=== PATIENT | female | born 1965 | race Caucasian/White ===

== ENCOUNTER 2024-08-03 12:06 | Emergency (ER) | payer OTHER, SELFPAY ==
[2024-08-03 12:11] VITALS: BP 118/76
--- NOTE | 2024-08-03 12:41 | ED.GENMED ---
History of Present Illness
General
Chief Complaint: Chest Pain
Source: patient
Exam Limitations: none
Time Seen by Provider: 08/03/24 12:40
Nursing documentation reviewed up to this point in time: agreed with
History of Present Illness
History of Present Illness:
59-year-old female with past medical history of breast cancer in remission as of 5 years, eczema presenting emergency department today with concerns of pleuritic chest pain and left upper back pain that started yesterday. She first noticed her
symptoms yesterday upon wakening. Patient reports that at first she thought it could be related to COVID as her daughter recently had it however she took at home test which were negative. Patient has no associated upper respiratory symptoms such as
coughing cold-like symptoms. Patient denies sore throat runny nose. Patient denies any redness or swelling in her legs. Patient does take tamoxifen but no exogenous estrogen. Patient denies any paresthesias or abdominal pain. Patient denies any
nausea or vomiting. Patient denies any personal history of cardiac disease, patient is no family history of cardiac disease. Patient does have a distant history of alcohol abuse.
Past History
Past History
ED Past Medical History: None
ED Past Surgical History: None
Social History
Tobacco: Non-smoker
Review of Systems
Review of Systems
All Other Systems: ROS reviewed and negative except as documented in HPI and ROS
Phy Exam
Physical Exam
Physical Exam:
General: Patient is well appearing and in no acute distress; non-toxic
Skin: Warm and dry, no rashes or lesions
Head: Normocephalic, atraumatic
Eyes: Sclera non-icteric. EOMs intact. PERRLA.
Cardiac: Regular rate and rhythm, no tenderness palpation external chest wall
Peripheral Vascular: No lower extremity swelling or edema
Pulm: Normal respiratory effort, no wheezes, rales, rhonchi bilaterally
Musculoskeletal: No tenderness to palpation of the left shoulder or the thoracic spine.
Neuro: CN II-XII intact, no focal neurologic deficits.
Psychiatric: Appropriate mood and affect.
Scores
Heart Score for Chest Pain Patients
STEMI patient?: No
History: Slightly or Non-Suspicious
ECG: Normal
Age: >45 - <65 years
Risk Factors: No Risk Factors
Troponin: </= Normal Limit
Heart Score for Chest Pain Patients: 1
Heart Score Risk: 2.5% MACE over next 6 weeks
Course
Orders/Labs/Results
Orders:
Orders
08/03/24 12:08
Electrocardiogram (*1) Urgent
Reason for Study: Chest Pain
EKG- Treatment ONCE
08/03/24 13:09
Complete Blood Count/With Diff Urgent
Comprehensive Metabolic Panel Urgent
Troponin I Urgent
08/03/24 13:35
CR Chest - 2 Views Urgent
Comment:
Reason For Exam: left sided chest pain, upper back pain
08/03/24 13:39
D-Dimer Urgent
08/03/24 13:43
Ketorolac [Toradol] 15 mg IV NOW STA
Abnormal Lab Results
08/03/24
13:09
RBC 3.71 L 10^6/uL
(4.20-5.40)
Hct 35.6 L %
(37.0-47.0)
MCH 33.2 H pg
(27.0-31.0)
Absolute Monos (auto) 0.7 H 10^3/uL
(0.1-0.6)
Lymphocytes % 18.7 L %
(20.5-51.1)
Monocytes % 11.0 H %
(1.7-9.3)
Glucose 119 H mg/dl
(70-99)
08/03/24 13:09
08/03/24 13:09
Vital Signs
Initial and Last Documented VS:
Initial Vital Signs
Temp Pulse Resp BP Pulse Ox
98.5 F 89 16 118/76 100
08/03/24 12:11 08/03/24 12:11 08/03/24 12:11 08/03/24 12:11 08/03/24 12:11
Last Documented Vital Signs
Temp Pulse Resp BP Pulse Ox
98.5 F 83 18 100/67 96
08/03/24 12:11 08/03/24 14:00 08/03/24 14:00 08/03/24 14:00 08/03/24 14:00
MDM/Problems Addressed
Differential Diagnosis Includes:
ddx include costochondritis, PE, ACS, musculoskeletal sprain strain, GERD, anxiety
MDM/Problems Addressed:
59-year-old female with past medical history of breast cancer in remission as of 5 years, eczema presenting emergency department today with concerns of pleuritic chest pain and left upper back pain that started yesterday. She first noticed her
symptoms yesterday upon wakening. Had similar pain in the past during which time she is undergoing radiation therapy however she had a workup at that time which was unremarkable. She called her primary care doctor to schedule appointment who
recommended emergency evaluation. Patient has no personal or family history of cardiac disease. On exam, she is well-appearing no acute distress with no tenderness palpation of the external chest wall and has no tenderness palpation of thoracic
spine or left shoulder. Her lung sounds are clear. Vitals are stable. Her EKG shows normal sinus rhythm with no skin changes. Her D-dimer is within normal limits her CBC and CMP are unremarkable. Initial troponin undetectable we will.
Considering patient symptoms started upon waking yesterday and did mildly improve with, patient is stable for outpatient follow-up.
Chronic conditions affecting care:
distant hx of breast cancer
Acute Exacerbation and/or Progression of Chronic Illness:
n/a
*Pulse Oximetry
Patient hypoxic: no
*EKG
Interpreted by ED Provider?: Yes
EKG Intrepretation Date: 08/03/24
Interpretation: normal
Comparison EKG: changes noted (non-specific T wave abnormality)
Heart Rate: 92
Rate: normal
Rhythm: sinus
[place]ass[place]: normal axis
Interval: normal interval, normal QT interval and normal IL interval
QRS Pattern: normal QRS
Ischemia: no ischemia
*Critical Care Note
Total Time (30-74mins, 75-104mins- exclusive of procedures): Not Applicable
ED Attending Note
-
Portions of this chart may have been created with voice recognition software.� Occasional wrong word or��sound alike� substitutions may have occurred due to the inherent limitations of voice recognition software.
Discharge Plan
Departure
Patient Disposition: Home (Routine Discharge)
Date of Disposition: 08/03/24
Time of Disposition: 15:05
Patient with high blood pressure during this ER visit?: Yes
Condition: Good
Discharge Problem:
Chest pain
Instructions: Chest pain, BLOOD PRESSURE
Prescriptions:
No Action
anastrozole 1 MG tablet
1 mg PO DAILY
oxcarbazepine 300 MG tablet
300 mg PO DAILY
Aspirin
81 mg PO DAILY
trazodone 50 MG tablet
50 mg PO HS PRN (Reason: insomnia)
oxcarbazepine 300 MG tablet
600 mg PO QPM
levothyroxine 88 MCG tablet
88 mcg PO DAILY
hydroxyzine HCl 25 MG tablet
25 mg PO PRN PRN (Reason: anxiety)
Fish Oil
1 - 2 cap PO DAILY
Multivitamin
1 tab PO DAILY
Naproxen
500 mg PO PRN PRN (Reason: pain)
Referrals:
Adria Ruano PA [Family Provider] -
Activity Restrictions/Additional Instructions:
Your d-dimer test was within normal limits. Your chest x-ray was normal.
Please follow up with your primary care provider in one week.
PLEASE RETURN TO THE ER SHOULD YOU EXPERIENCE AN ACUTE WORSENING OF YOUR SYMPTOMS, SHORTNESS OF BREATH, NUMBNESS OR TINGLING, CONFUSION, DIFFICULTY SPEAKING, JAW PAIN, LEFT ARM PAIN, OR ANY OTHER SIGNS OR SYMPTOMS CONCERNING TO YOU.
Interventions
Interventions:
*Risk Screen - Suicide Last Done: 08/03/24 12:11
*General Assessment Last Done: 08/03/24 12:48
*Neglect/Abuse Screening Last Done: 08/03/24 12:11
ED- Fall Risk Assessment Last Done: 08/03/24 12:48
*ED COVID-19 Vaccine History Last Done: 08/03/24 12:48
ED- Cardiac Assessment Last Done: 08/03/24 12:48
Discharge Date and Time
Print Language: DIVEHI
[2024-08-03 12:48] VITALS: BMI 26.8
[2024-08-03 13:28] LABS: % Basophils 0.5 % (0-2); % Eosinophils 1.6 % (0-6); % Immature Granulocytes 0.2 % (0-0.5); % Lymphocytes 18.7 % (20.5-51.1); Absolute Eosinophils 0.1 10^3/uL (0-0.7); Absolute Lymphocytes 1.2 10^3/uL (1.2-3.4); Absolute Monocytes 0.7 10^3/uL (0.1-0.6); Absolute Neutrophils 4.3 10^3/uL (1.4-6.5); Hematocrit 35.6 % (37.0-47.0); Hemoglobin 12.3 g/dL (12.0-16.0); Mean Corp Hgb Conc. 34.6 g/dL (33.0-37.0); Mean Corpuscular Hgb 33.2 pg (27.0-31.0); Mean Platelet Volume 9.1 fL (7.4-10.4); Nucleated Red Blood Cells % 0 %; Platelet Count 200 10^3/uL (130-400); Red Blood Cell Count 3.71 10^6/uL (4.20-5.40); Red Cell Dist. Width 12.3 % (11.5-14.5); White Blood Cell Count 6.4 10^3/uL (4.8-10.8)
[2024-08-03 13:37] LABS: ALT (SGPT) 25 U/L (0-35); AST (SGOT) 31 U/L (14-36); Alkaline Phosphatase 40 U/L (38-126); Blood Urea Nitrogen 14 mg/dl (7-17); Calcium 9.5 mg/dl (8.4-10.2); Carbon Dioxide 25 mmol/L (22-30); Chloride 105 mmol/L (98-107); Estimated Creatinine Clearance 61 ml/min; Glucose 119 mg/dl (70-99); Potassium 4.4 mmol/L (3.5-5.1); Sodium 141 mmol/L (135-145); Total Bilirubin 0.6 mg/dl (0.2-1.3); Total Protein 6.4 g/dl (6.3-8.2); eGFR > 60.00
[2024-08-03 13:47] LABS: Troponin I < 0.012 ng/ml
[2024-08-03] MEDS: TORADOL 15 MG IV (13:50)
[2024-08-03 14:00] VITALS: BP 100/67
== END 2024-08-03 15:34 | disposition home or self-care (01) ==
LOC: EMR 12:06
PROVIDERS: Physician Assistant; EMERGENCY PHYSICIAN Emergency Medicine; FAMILY PHYSICIAN Physician Assistant
DX: R07.89 Other chest pain (principal); M54.6 Pain in thoracic spine; R03.0 Elevated blood-pressure reading, without diagnosis of hypertension; Z20.822 Contact with and (suspected) exposure to COVID-19; Z85.3 Personal history of malignant neoplasm of breast; Z92.3 Personal history of irradiation; Z88.2 Allergy status to sulfonamides; M19.90 Unspecified osteoarthritis, unspecified site
CPT/HCPCS: 99284; 96374; 71046; 80053; 84484; 85025; 85379; 93005